=== PATIENT | male | born 1965 | race Caucasian/White ===

== ENCOUNTER 2016-12-25 19:32 | Emergency (ER) | payer OTHER ==
[2016-12-25 19:42] VITALS: BP 149/98; PULSE 77; TEMP 98.8; BMI 39.1
--- NOTE | 2016-12-25 20:18 | PDOC ---
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 The patient reports leaving the precinct when he inverted his left ankle on the sidewalk. The patient is able to ambulate upon presentation to the ED. The patient denies chest pain, shortness of breath, headache and dizziness. Denies fever, chills, nausea, vomit, diarrhea and constipation. Denies dysuria, frequency, urgency and hematuria. Allergies: NKA Past surgical history: None reported. Social history: No reported cigarette, alcohol, or drug use. PCP: None reported. <Daniel Mack - Last Filed: 12/25/16 20:24> - General History Source: Patient <[email or web address] - Last Filed: 12/25/16 20:27> - General Chief Complaint: Injury Stated Complaint: [employer]/SPRAINED ANKLE Time Seen by Provider: 12/25/16 20:15 Past History <Daniel Mack - Last Filed: 12/25/16 20:24> - Suicide/Smoking/Psychosocial Hx Smoking History: Never smoked Have you smoked in the past 12 months: No Information on smoking cessation initiated: No Hx Alcohol Use: No Drug/Substance Use Hx: No Substance Use Type: None <Nito Rosas - Last Filed: 12/25/16 20:27> - Past Medical History Allergies/Adverse Reactions: Allergies Allergy/AdvReac Type Severity Reaction Status Date / Time No Known Allergies Allergy Verified 12/25/16 19:42 Home Medications: Ambulatory Orders Ibuprofen 800 mg PO TID #30 tablet 12/25/16 Methocarbamol [Robaxin -] 750 mg PO Q8H #30 tablet 12/25/16 Review of Systems - Review of Systems Able to Perform ROS?: Yes Comments:: 12/25/16 20:25 CONSTITUTIONAL: Absent: fever, chills, diaphoresis, generalized weakness, malaise, loss of appetite HEENT: Absent: rhinorrhea, nasal congestion, throat pain, throat swelling, difficulty swallowing, mouth swelling, ear pain, eye pain, visual Changes CARDIOVASCULAR: Absent: chest pain, syncope, palpitations, irregular heart rate, lightheadedness , peripheral edema RESPIRATORY: Absent: cough, shortness of breath, dyspnea with exertion, orthopnea, wheezing, stridor, hemoptysis GASTROINTESTINAL: Absent: abdominal pain, abdominal distension, nausea, vomiting, diarrhea, constipation, melena, hematochezia GENITOURINARY: Absent: dysuria, frequency, urgency, hesitancy, hematuria, flank pain, genital pain MUSCULOSKELETAL: (+) Left ankle pain & swelling. Absent: myalgia, SKIN: Absent: rash, itching, pallor HEMATOLOGIC/IMMUNOLOGIC: Absent: easy bleeding, easy bruising, lymphadenopathy, frequent infections ENDOCRINE: Absent: unexplained weight gain, unexplained weight loss, heat intolerance, cold intolerance NEUROLOGIC: Absent: headache, focal weakness or paresthesias, dizziness, unsteady gait, seizure, mental status changes, bladder or bowel incontinence PSYCHIATRIC: Absent: anxiety, depression, suicidal or homicidal ideation, hallucinations. <Daniel Mack - Last Filed: 12/25/16 20:24> *Physical Exam - Vital Signs Last Vital Signs Temp Pulse Resp BP Pulse Ox 98.8 F 77 19 149/98 99 12/25/16 19:39 12/25/16 19:39 12/25/16 19:39 12/25/16 19:39 12/25/16 19:39 - Physical Exam Comments: 12/25/16 20:25 GENERAL: Well developed, well nourished. Awake and alert. No acute distress. HEENT: Normocephalic, atraumatic. PERRLA, EOMI. No conjunctival pallor. Sclera are non- icteric. Moist mucous membranes. Oropharynx is clear. NECK: Supple. Full ROM. No JVD. Carotid pulses 2+ and symmetric, without bruits. No thyromegaly. No lymphadenopathy. CARDIOVASCULAR: Regular rate and rhythm. No murmurs, rubs, or gallops. Distal pulses are 2+ and symmetric. PULMONARY: No evidence of respiratory distress. Lungs clear to auscultation bilaterally. No wheezing, rales or rhonchi. ABDOMINAL: Soft. Non-tender. Non-distended. No rebound or guarding. No organomegaly. Normoactive bowel sounds. MUSCULOSKELETAL Normal range of motion at all joints. No bony deformities or tenderness. No CVA tenderness. EXTREMITIES: (+) Mild edema throughout entire anterior aspect of left ankle. No cyanosis. No clubbing. No calf tenderness. SKIN: Warm and dry. Normal capillary refill. No rashes. No jaundice. NEUROLOGICAL: Alert, awake, appropriate. Cranial nerves 2-12 intact. No deficits to light touch and temperature in face, upper extremities and lower extremities. No motor deficits in the in face, upper extremities and lower extremities. Normoreflexic in the upper and lower extremities. Normal speech. Toes are downgoing bilaterally. Gait is normal without ataxia. PSYCHIATRIC: Cooperative. Good eye contact. Appropriate mood and affect. <Daniel Mack - Last Filed: 12/25/16 20:24> - Vital Signs Last Vital Signs Temp Pulse Resp BP Pulse Ox 98.8 F 77 19 149/98 99 12/25/16 19:39 12/25/16 19:39 12/25/16 19:39 12/25/16 19:39 12/25/16 19:39 <Nito Rosas - Last Filed: 12/25/16 20:27> Medical Decision Making - Medical Decision Making 12/25/16 20:27 Dr. Rosas: The scribe's documentation has been prepared under my direction and personally reviewed by me in its entirery. I confirm that the note above accurately reflects all work, treatment, procedures, and medical decision making performed by me. <Nito Rosas - Last Filed: 12/25/16 20:27> *DC/Admit/Observation/Transfer - Attestations Scribe Attestion: 12/25/16 20:25 Documentation prepared by Daniel Mack, acting as biomedical field service engineer for Nito Rosas DO. <Daniel Mack - Last Filed: 12/25/16 20:24> - Discharge Dispostion Admit: No <Nito Rosas - Last Filed: 12/25/16 20:27> Diagnosis at time of Disposition: Left ankle sprain Qualifiers: Encounter type: initial encounter - Discharge Dispostion Disposition: HOME Condition at time of disposition: Stable - Prescriptions Prescriptions: Ibuprofen 800 mg PO TID #30 tablet Methocarbamol [Robaxin -] 750 mg PO Q8H #30 tablet - Patient Instructions Printed Discharge Instructions: DI for Ankle Sprain
[2016-12-25] MEDS ORDERED: IBUPROFEN 400 MG TABLET (FP) PO ONE ×2 (20:21→20:36)
== END 2016-12-25 21:01 | disposition home or self-care (01) ==
LOC: JER 19:32
DX: S63.502A Unspecified sprain of left wrist, initial encounter (principal); W01.0XXA Fall on same level from slipping, tripping and stumbling without subsequent striking against object, initial encounter; Y93.89 Activity, other specified; Y92.480 Sidewalk as the place of occurrence of the external cause; Y99.0 Civilian activity done for income or pay
CPT/HCPCS: 99281-25